=== PATIENT | male | born 1980 | race Caucasian/White ===

== ENCOUNTER 2017-10-02 19:58 | Emergency (ER) | payer SELFPAY ==
[2017-10-02 19:58] VITALS: BMI 25.8
[2017-10-02 20:09] VITALS: BP 124/82; PULSE 85; RESP 14; TEMP 97.5; O2SAT 97
== END 2017-10-02 20:43 | disposition left against medical advice (07) ==
LOC: C.ER 19:58
DX: Z02.89 Encounter for other administrative examinations (principal); Z00.00 Encounter for general adult medical examination without abnormal findings